=== PATIENT | female | born 1980 ===

== ENCOUNTER 2017-10-25 06:03 | Inpatient (IN) | payer OTHER ==
[~2017-10-25] VITALS: Ht 152.4 cm; Wt 90.7 kg
[~2017-10-25 06:03] MED LIST: IMODIUM2 MG PO; PEPCID40 MG PO; PHENERGAN25 MG PO
[2017-10-25] MEDS ORDERED: PRENATABS RX T1 EACH PO (07:50)
[2017-10-27] MEDS ORDERED: [UNRECOGNIZED DRUG - OTHER] IM (06:54)
== END 2017-10-27 14:49 | disposition home or self-care (01) | DRG 775 ==
LOC: LDR 06:03 → OB/GYN 06:03 → LDR 06:19 → OB/GYN 19:08
PROC: 10E0XZZ Delivery of Products of Conception, External Approach (ICD-10-PCS; principal; 2017-10-25)
PROC: 0HQ9XZZ Repair Perineum Skin, External Approach (ICD-10-PCS; 2017-10-25)
PROC: 10907ZC Drainage of Amniotic Fluid, Therapeutic from Products of Conception, Via Natural or Artificial Opening (ICD-10-PCS; 2017-10-25)
PROC: 3E0P7VZ Introduction of Hormone into Female Reproductive, Via Natural or Artificial Opening (ICD-10-PCS; 2017-10-25)
PROC: 3E033VJ Introduction of Other Hormone into Peripheral Vein, Percutaneous Approach (ICD-10-PCS; 2017-10-25)
PROC: 4A033R1 Measurement of Arterial Saturation, Peripheral, Percutaneous Approach (ICD-10-PCS; 2017-10-25)
PROC: 4A1HXCZ Monitoring of Products of Conception, Cardiac Rate, External Approach (ICD-10-PCS; 2017-10-25)
DX: O70.0 First degree perineal laceration during delivery (principal); O24.420 Gestational diabetes mellitus in childbirth, diet controlled; O99.02 Anemia complicating childbirth; Z3A.40 40 weeks gestation of pregnancy; Z37.0 Single live birth

== ENCOUNTER 2019-04-03 06:00 | Inpatient (IN) | payer OTHER ==
[~2019-04-03] VITALS: Ht 152.4 cm; Wt 92.5 kg
[~2019-04-03 06:00] MED LIST changes: +PRENATABS RX T1 EACH PO; +[UNRECOGNIZED DRUG - OTHER] IM
[2019-04-03] MEDS ORDERED: HUMULIN N100 UNIT/2 SUBCUTANEO (08:01)
[2019-04-03] MEDS ORDERED: HUMULIN R500 UNIT/2 SUBCUTANEO (08:03)
[2019-04-03] MEDS ORDERED: LABETALOL HCL100 MG PO (08:04)
[2019-04-03] MEDS ORDERED: PRENATAL TABLE1 EAC1 PO (08:04)
== END 2019-04-05 11:30 | disposition home or self-care (01) | DRG 807 ==
LOC: OB/GYN 06:00 → LDR 06:00 → OB/GYN 15:03
PROVIDERS: ADMIT Obstetrics & Gynecology
PROC: 10E0XZZ Delivery of Products of Conception, External Approach (ICD-10-PCS; principal; 2019-04-03)
PROC: 0HQ9XZZ Repair Perineum Skin, External Approach (ICD-10-PCS; 2019-04-03)
PROC: 10907ZC Drainage of Amniotic Fluid, Therapeutic from Products of Conception, Via Natural or Artificial Opening (ICD-10-PCS; 2019-04-03)
PROC: 3E0P7VZ Introduction of Hormone into Female Reproductive, Via Natural or Artificial Opening (ICD-10-PCS; 2019-04-03)
PROC: 3E033VJ Introduction of Other Hormone into Peripheral Vein, Percutaneous Approach (ICD-10-PCS; 2019-04-03)
PROC: 4A1HXCZ Monitoring of Products of Conception, Cardiac Rate, External Approach (ICD-10-PCS; 2019-04-03)
DX: O70.0 First degree perineal laceration during delivery (principal); Z37.0 Single live birth; Z3A.38 38 weeks gestation of pregnancy